=== PATIENT | male | born 1950 | race Two or more races ===

== ENCOUNTER → 2018-01-21 | Outpatient (REF) | payer BC ==
[~2018-01-21] MED LIST: ADVAIR IH; CELE-1 PO; HYDR-3503 PO; LOR7.5/325 PO; PER PO
[2018-01-21 17:32] LABS: PLATELET COUNT, AUTOMATED 218 K/uL (150-450)
== END ==
PROVIDERS: ATTEND Physician Assistant Medical
DX: R09.02 Hypoxemia (principal); R06.02 Shortness of breath
CPT/HCPCS: 82040; 82247; 82310; 82374; 82435; 82565; 82947; 84075; 84132; 84155; 84295; 84450; 84460; 84520; 85025